=== PATIENT | female | born 1945 | race Caucasian/White ===

== ENCOUNTER → 2016-10-04 | Outpatient (CLI) | payer MEDICARE, BC ==
[2016-10-04 12:43] LABS: ABSOLUTE EOSINOPHILS # (AUTO) 0.1 10^3/uL (0.0-0.6); ABSOLUTE LYMPHOCYTES (AUTO) 1.4 10^3/uL (0.5-4.7); ABSOLUTE MONOCYTES (AUTO) 0.5 10^3/uL (0.1-1.4); ABSOLUTE NEUT (AUTO) 4.5 10^3/uL (1.7-8.2); BASOPHILS % (AUTO) 0.7 % (0-2); EOSINOPHILS % (AUTO) 1.7 % (0-6); HEMATOCRIT 39.6 % (36.0-47.0); HEMOGLOBIN 13.3 g/dL (12.0-15.5); HGB HCT DIFFERENCE 0.3; LYMPHOCYTES % (AUTO) 21.6 % (13-45); MEAN CORPUSCULAR HGB CONC 33.4 g/dL (32.0-36.0); MEAN CORPUSCULAR VOLUME 81 fl (80-97); RED CELL DISTRIBUTION WIDTH 15.3 % (11.5-14.0); WHITE BLOOD COUNT 6.7 10^3/uL (4.0-10.5)
[2016-10-04 13:20] LABS: ANION GAP 11 (5-19)
[2016-10-04 13:58] LABS: THYROID STIMULATING HORMONE 0.07 uIU/mL (0.47-4.68)
[2016-10-04 14:18] LABS: ALANINE AMINOTRANSFERASE 23 U/L (9-52); ALBUMIN 4.2 g/dL (3.5-5.0); ALKALINE PHOSPHATASE 60 U/L (38-126); ASPARTATE AMINO TRANSFERASE 21 U/L (14-36); BILIRUBIN,DIRECT 0.4 mg/dL (0.0-0.4); BILIRUBIN,TOTAL 0.7 mg/dL (0.2-1.3); BLOOD UREA NITROGEN 14 mg/dL (7-20); CALCIUM 9.4 mg/dL (8.4-10.2); CARBON DIOXIDE 27 mmol/L (22-30); CHLORIDE 105 mmol/L (98-107); CHOLESTEROL 157.68 mg/dL (0-200); CREATININE RESULT 0.72 mg/dL (0.52-1.25); DIRECT LDL 95 mg/dL (<100); Direct HDL 50 mg/dL (>40); GLUCOSE 86 mg/dL (75-110); POTASSIUM 4.6 mmol/L (3.6-5.0); SODIUM 143.1 mmol/L (137-145); TOTAL PROTEIN 7.8 g/dL (6.3-8.2); TRIGLYCERIDES 98 mg/dL (<150)
== END ==
LOC: OD 11:24
PROVIDERS: ATTEND Internal Medicine
DX: E03.9 Hypothyroidism, unspecified (principal); I10 Essential (primary) hypertension; M10.071 Idiopathic gout, right ankle and foot; D51.9 Vitamin B12 deficiency anemia, unspecified; G31.84 Mild cognitive impairment of uncertain or unknown etiology; Z79.899 Other long term (current) drug therapy
CPT/HCPCS: 36415; 80053; 80061; 82306; 82607; 84439; 84443; 85025

== ENCOUNTER 2017-10-07 09:07 | Emergency (ER) | payer MEDICARE, BC ==
--- NOTE | 2017-10-07 09:49 | ER Document Report ---
ED Medical Screen (RME) - General Chief Complaint: Pelvic Pain Stated Complaint: PELVIC PAIN Time Seen by Provider: 10/07/17 09:24 Mode of Arrival: Wheelchair Information source: Patient Notes: 71-year-old female presented ED for complaint of pain since September 01, 2017 when she fell. She states she went to urgent care and they did x-ray and stated that there was no fracture. She stated they put her on tramadol which has not really done anything. She states that the pain has never stopped hurting since September 01. She has not been back to follow-up for this pain. Patient has a history of high blood pressure, thyroid tumors with a thyroidectomy, breast cancer with a lumpectomy, colonoscopy, fractured ankle, fibromyalgia, and arthritis. She states it is very painful to walk or move due to the pain in her pelvis and tailbone and low back. She is a former smoker but has not smoked in years. I have greeted and performed a rapid initial assessment of this patient. A comprehensive ED assessment and evaluation of the patient, analysis of test results and completion of medical decision making process will be conducted by an additional ED providers. TRAVEL OUTSIDE OF THE [place] IN LAST 30 DAYS: No - Related Data Allergies/Adverse Reactions: No Known Allergies Allergy (Verified 09/14/15 08:15) Past Medical History - Past Medical History Cardiac Medical History: Reports: Hx Hypertension - controlled w meds Denies: Hx Coronary Artery Disease, Hx Heart Attack Pulmonary Medical History: Denies: Hx Asthma, Hx Bronchitis, Hx COPD, Hx Pneumonia Neurological Medical History: Denies: Hx Cerebrovascular Accident, Hx Seizures Renal/ Medical History: Denies: Hx Peritoneal Dialysis GI Medical History: Denies: Hx Hepatitis, Hx Hiatal Hernia, Hx Ulcer Musculoskeltal Medical History: Reports Hx Arthritis - Knees, fingers Infectious Medical History: Denies: Hx Hepatitis Past Surgical History: Reports: Hx Hysterectomy. Denies: Hx Mastectomy, Hx Open Heart Surgery, Hx Pacemaker - Immunizations Hx Diphtheria, Pertussis, Tetanus Vaccination: Yes Physical Exam - Vital signs Vitals: Temp Pulse Resp BP Pulse Ox 97.6 F 59 L 17 134/66 H 95 10/07/17 09:13 10/07/17 09:13 10/07/17 09:13 10/07/17 09:13 10/07/17 09:13 Course - Vital Signs Vital signs: Temp Pulse Resp BP Pulse Ox 97.6 F 59 L 17 134/66 H 95 10/07/17 09:13 10/07/17 09:13 10/07/17 09:13 10/07/17 09:13 10/07/17 09:13
[2017-10-07] MEDS ORDERED: HYDROCODONE/ACETAMINOPHEN 5-325 MG TABLET PO ONE (10:11)
--- NOTE | 2017-10-07 10:12 | ER Document Report ---
HPI - HPI Patient complains to provider of: Sacral pain Onset: Other - Month Onset/Duration: Persistent Quality of pain: Achy Pain Level: 5 Context: Patient states that she was taking the trash out in a stray dog came running towards her. Patient states she slipped and fell landing on a wooden step. Patient complains of continued sacral and right posterior hip pain. Patient is able to ambulate. Patient was seen at an urgent care when this first happened and had x-rays that did not show any acute findings. Patient states she has been taking tramadol without any relief of her pain symptoms. Associated Symptoms: Other - Sacral pain, right posterior hip pain Exacerbated by: Sitting, Standing, Movement, Walking Relieved by: Denies Similar symptoms previously: No Recently seen / treated by doctor: Yes - ROS ROS below otherwise negative: Yes Systems Reviewed and Negative: Yes All other systems reviewed and negative - CONSTITUTIONAL Constitutional: DENIES: Fever - NEURO Neurology: DENIES: Headache, Weakness - MUSCULOSKELETAL Musculoskeletal: REPORTS: Extremity pain. DENIES: Back Pain - DERM Skin Color: Normal Skin Problems: None Past Medical History - General Information source: Patient - Social History Smoking Status: Never Smoker Frequency of alcohol use: None Drug Abuse: None Occupation: None Lives with: Family Family History: Reviewed & Not Pertinent Patient has suicidal ideation: No Patient has homicidal ideation: No - Past Medical History Cardiac Medical History: Reports: Hx Hypertension - controlled w meds Denies: Hx Coronary Artery Disease, Hx Heart Attack Pulmonary Medical History: Denies: Hx Asthma, Hx Bronchitis, Hx COPD, Hx Pneumonia Neurological Medical History: Denies: Hx Cerebrovascular Accident, Hx Seizures Renal/ Medical History: Denies: Hx Peritoneal Dialysis Malignancy Medical History: Reports: Hx Breast Cancer GI Medical History: Denies: Hx Hepatitis, Hx Hiatal Hernia, Hx Ulcer Musculoskeltal Medical History: Reports Hx Arthritis - Knees, fingers Infectious Medical History: Denies: Hx Hepatitis Past Surgical History: Reports: Hx Hysterectomy, Hx Thyroid Surgery. Denies: Hx Mastectomy, Hx Open Heart Surgery, Hx Pacemaker - Immunizations Hx Diphtheria, Pertussis, Tetanus Vaccination: Yes Vertical Provider Document - CONSTITUTIONAL Agree With Documented VS: Yes Exam Limitations: No Limitations General Appearance: WD/WN, No Apparent Distress - INFECTION CONTROL TRAVEL OUTSIDE OF THE [place] IN LAST 30 DAYS: No - HEENT HEENT: Atraumatic, Normocephalic - NECK Neck: Normal Inspection - RESPIRATORY Respiratory: Breath Sounds Normal, No Respiratory Distress - CARDIOVASCULAR Cardiovascular: Regular Rate, Regular Rhythm Pulses: Normal: Dorsalis pedis - BACK Back: Abnormal Inspection - Right SI joint tenderness, sacral tenderness. negative: CVA Tenderness-Right, CVA Tenderness-Left - MUSCULOSKELETAL/EXTREMETIES Musculoskeletal/Extremeties: MAEW, Tender - Right hip joint tenderness to posterior aspect and right inguinal area, normal gait, no deformity - NEURO Level of Consciousness: Awake, Alert Motor/Sensory: No Motor Deficit, No Sensory Deficit Notes: No saddle anesthesia, no footdrop - DERM Integumentary: Warm, Dry Course - Re-evaluation Re-evalutation: 10/07/17 11:[address] Dwyer regarding patient presentation, recommends consultation with orthopedics. Consulted with Dr. Gordon who advises outpatient follow-up in the office on Sunday for further evaluation. - Vital Signs Vital signs: Temp Pulse Resp BP Pulse Ox 97.6 F 59 L 17 134/66 H 95 10/07/17 09:13 10/07/17 09:13 10/07/17 09:13 10/07/17 09:13 10/07/17 09:13 - Diagnostic Test Radiology reviewed: Image reviewed, Reports reviewed Discharge - Discharge Clinical Impression: Sacral fracture, closed Qualifiers: Encounter type: initial encounter Zone of sacrum fracture: unspecified portion of sacrum Qualified Code(s): S32.10XA - Unspecified fracture of sacrum, initial encounter for closed fracture Fracture of lumbar spine Qualifiers: Encounter type: initial encounter Lumbar vertebra fracture level: unspecified lumbar vertebra Fracture type: closed Fracture morphology: unspecified fracture morphology Qualified Code(s): S32.009A - Unspecified fracture of unspecified lumbar vertebra, initial encounter for closed fracture Condition: Stable Disposition: HOME, SELF-CARE Instructions: Oral Narcotic Medication ([facility]) Additional Instructions: Return immediately for any new or worsening symptoms Followup with your primary care provider, call tomorrow to make a followup appointment Take your tramadol or the hydrocodone, do not take both of these medications together at the same time. Follow-up with orthopedics on Sunday for further evaluation, call Sunday for an appointment time. Prescriptions: Hydrocodone/Acetaminophen [Dexter 5-325 Tablet] 1 each PO Q8 PRN #12 tablet PRN Reason: Lidocaine [Lidoderm 5% (700 mg) Transdermal Patch] 1 patch TP DAILY PRN #7 adh..patch PRN Reason: Referrals: CORETTA SCANLON MD [Primary Care Provider] - Follow up as needed JESSICA GORDON MD [ACTIVE STAFF] - 10/09/17
--- NOTE | 2017-10-07 11:02 | RADIOLOGY REPORT (SQ) ---
EXAM DESCRIPTION: CT ABD/PELVIS NO ORAL OR IV COMPLETED DATE/TIME: 10/07/2017 10:46 am REASON FOR STUDY: Pelvic lumbar sacral pain since fall may COMPARISON: None. TECHNIQUE: CT scan of the abdomen and pelvis performed without intravenous or oral contrast. Images reviewed with lung, soft tissue, and bone windows. Reconstructed coronal and sagittal MPR images revi ewed. All images stored on PACS. All CT scanners at this facility use dose modulation, iterative reconstruction, and/or weight based d osing when appropriate to reduce radiation dose to as low as reasonably achievable (ALARA). [facility]: Dose Right [facility]: CareDose [facility]: Dose Right [facility]: Teradose 4D [facility]: Bitstamp RADIATION DOSE: CT Rad equipment meets quality standard of care and radiation dose reduction techniq ues were employed. CTDIvol: 9.8 mGy. DLP: 532 mGy-cm.mGy. LIMITATIONS: None. FINDINGS: LOWER CHEST: No significant findings. No nodules or infiltrates. NON-CONTRASTED LIVER, SPLEEN, ADRENALS: Evaluation limited by lack of IV contrast. No identified sign ificant masses. PANCREAS: No masses. No peripancreatic inflammatory changes. GALLBLADDER: Surgically absent. RIGHT KIDNEY AND URETER: No suspicious masses. Assessment limited by lack of IV contrast. No signif icant calcifications. No hydronephrosis or hydroureter. LEFT KIDNEY AND URETER: No suspicious masses. Assessment limited by lack of IV contrast. No signifi cant calcifications. No hydronephrosis or hydroureter. AORTA AND RETROPERITONEUM: No aneurysm. No retroperitoneal masses or adenopathy. BOWEL AND PERITONEAL CAVITY: No obvious masses or inflammatory changes. No free fluid. APPENDIX: Not visualized. PELVIS, BLADDER, AND ABDOMINAL WALL:No abnormal masses. Small midline abdominal hernia containing fa t, located 2 cm superior to the umbilicus. No free fluid. Bladder normal. BONES: Degenerative changes in the spine. Subacute fractures of the left transverse processes of L4 and L5. Heterogenous sclerotic appearance of the sacrum with faint vertical fracture lines. OTHER: No other significant finding. IMPRESSION: 1. SUBACUTE FRACTURES OF THE RIGHT AND LEFT SIDE OF THE SACRUM AND OF THE LEFT TRANSVERSE PROCESSES O F L4 AND L 5. 2. SMALL MIDLINE ABDOMINAL WALL HERNIA CONTAINING FAT. NO INVOLVEMENT OF BOWEL. 3. NO OTHER SIGNIFICANT FINDINGS. COMMENT: Quality ID # [id number]: Final reports with documentation of one or more dose reduction techniques (e.g., Automated exposure control, adjustment of the mA and/or kV according to patient size, use of iterative reconstruction technique) TECHNICAL DOCUMENTATION: JOB ID: [id number] [email or web address]- All Rights Reserved Reading location - IP/workstation name: [email or web address]
[2017-10-07] MEDS ORDERED: LIDOCAINE 5% (700 MG) TRANSDERMAL ADH..PATCH TP ONE (11:21)
[2017-10-07 11:53] VITALS: BP 136/49
== END 2017-10-07 11:40 | disposition home or self-care (01) ==
LOC: ER 09:07
DX: S32.10XA Unspecified fracture of sacrum, initial encounter for closed fracture (principal); S32.009A Unspecified fracture of unspecified lumbar vertebra, initial encounter for closed fracture; M53.3 Sacrococcygeal disorders, not elsewhere classified; M25.551 Pain in right hip; W01.0XXA Fall on same level from slipping, tripping and stumbling without subsequent striking against object, initial encounter; Y93.9 Activity, unspecified; I10 Essential (primary) hypertension
CPT/HCPCS: 99284; 74176; A9270

== ENCOUNTER → 2017-10-20 | Outpatient (CLI) | payer MEDICARE, BC ==
--- NOTE | 2017-10-20 14:19 | RADIOLOGY REPORT (SQ) ---
EXAM DESCRIPTION: MRI PELVIS WITHOUT COMPLETED DATE/TIME: 10/20/2017 11:52 am REASON FOR STUDY: PELVIC FX, FALL ONE MONTH AGO R10.2 PELVIC AND PERINEAL PAIN COMPARISON: CT abdomen pelvis 10/07/2017 TECHNIQUE: MRI bony pelvis acquired and stored on PACS. Multiplanar images to include fat sensitive sequences as T1, fluid sensitive sequences as T2/STIR and gradient echo sequences. Large FOV fat and fluid sensitive sequences include pelvis and opposite hip. LIMITATIONS: None. FINDINGS: BONE CORTEX AND MARROW: There is marrow edema in the right and left sacral ala and along t he right symphysis pubis from subacute nondisplaced osteoporotic insufficiency fractures. RIGHT HIP: No marrow signal and abnormality worrisome for occult fracture right proximal femur or acetabulum. N o right hip joint effusion. No trochanteric bursal fluid. There is edema in the obturator externus muscle on the right, with a small intramuscular hematoma measuring about 4 x 1.6 cm on coronal image 11. LEFT HIP: No marrow signal abnormality worrisome for occult fracture left proximal femur or acetabulum. No sig nificant joint effusion. No trochanteric bursal fluid. PELVIS : There is marrow edema in the right and left sacral ala and along the right symphysis pubis f rom subacute nondisplaced osteoporotic insufficiency fractures. L SPINE: Edema along the left transverse process of L4 from subacute fracture. MUSCLES AND SOFT TISSUES: Right-sided obturator externus muscle hematoma on coronal image 11. Minima l edema in the left psoas and paraspinal muscles adjacent to the left L4 transverse process. PELVIC SOFT TISSUES: No masses or adenopathy. Post hysterectomy. SCIATIC NERVE: Identified, without masses or abnormal signal. OTHER: No other significant finding. IMPRESSION: Insufficiency fractures along the right and left sacral ala and right superior pubic yash us/right symphysis pubis. Edema along the left L4 transverse process related to fracture. Small right obturator externus muscle hematoma. TECHNICAL DOCUMENTATION: JOB ID: [id number]- All Rights Reserved Reading location - IP/workstation name: [email or web address]
== END ==
LOC: RAD 10:41
PROVIDERS: ATTEND Physician Assistant Medical
DX: M84.459A Pathological fracture, hip, unspecified, initial encounter for fracture (principal); R10.2 Pelvic and perineal pain
CPT/HCPCS: 72195

== ENCOUNTER → 2017-10-25 | Outpatient (CLI) | payer MEDICARE, BC ==
--- NOTE | 2017-10-25 12:14 | RADIOLOGY REPORT (SQ) ---
EXAM DESCRIPTION: MRI LUMBAR SPINE WITHOUT COMPLETED DATE/TIME: 10/25/2017 9:58 am REASON FOR STUDY: LOW BACK PAIN M54.5 LOW BACK PAIN R10.2 PELVIC AND PERINEAL PAIN COMPARISON: CT abdomen pelvis 10/07/2017 TECHNIQUE: Sagittal and Axial imaging includes T1, T2, STIR and gradient echo sequences. Coronal T2/ HASTE imaging. LIMITATIONS: None. FINDINGS: VISUALIZED UPPER ABDOMEN: Limited evaluation. No acute or suspicious findings suggested. SEGMENTATION: No transitional anatomy. The lowest well-developed disc space is labeled L5-S1. ALIGNMENT: Grade 1 anterolisthesis of L5 over S1 related to bilateral L5 spondylolysis VERTEBRAE: Intact. BONE MARROW: There is marrow edema in the right and left sacral ala from subacute bilateral insuffici ency fractures, similar compared to 10/07/2017 CT exam DISC SIGNAL: Disc space loss of height with decreased T2 weighted intervertebral disc signal at L5-S1 POSTERIOR ELEMENTS: Bilateral spondylolysis at L5 HARDWARE: None in the spine. CORD AND CONUS: Normal in size and signal intensity. Conus at the L1 level. SOFT TISSUES: No aortic aneurysm seen. No bulky retroperitoneal adenopathy or mass. No paraspinal mas s or fluid. T12-L1: No central or foraminal stenosis. Mild bilateral facet hypertrophy and ligamentum flavum th ickening L1-L2: Borderline central canal narrowing results from broad diffuse disc bulge and mild facet and li gament hypertrophy. No significant foraminal narrowing. L2-L3: Minimal posterior disc bulge and bony spurring, moderate bilateral facet and ligament hypertro phy. No central stenosis. No significant right foraminal narrowing. Mild inferior left foraminal n arrowing. L3-L4: Broad diffuse posterior disc bulge and moderate bilateral facet and ligament hypertrophy. No central stenosis. Mild bilateral inferior foraminal narrowing without exiting L3 nerve root impingem ent L4-L5: Broad diffuse posterior disc bulging right greater than left, moderate bilateral facet and lig ament hypertrophy. No central stenosis. Mild right and left foraminal narrowing without L4 nerve ro ot impingement. L5-S1: Degenerative spondylolysis with grade 1 anterolisthesis of L5 over S1. No central stenosis. Moderate bilateral foraminal narrowing without exiting L5 nerve root impingement. LOWER THORACIC: Incompletely imaged. No stenosis seen. SACRUM: There is edema in the right and left sacral ala from subacute insufficiency fractures. This is similar compared to CT 10/07/2017 OTHER: No other significant findings. IMPRESSION: Sacral insufficiency fractures. 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 TECHNICAL DOCUMENTATION: JOB ID: [id number] [employer]- All Rights Reserved Reading location - IP/workstation name: [facility]
== END ==
LOC: RAD 09:04
PROVIDERS: ATTEND Physician Assistant Medical
DX: M54.5 Low back pain (principal); R10.2 Pelvic and perineal pain; M47.897 Other spondylosis, lumbosacral region; M84.48XD Pathological fracture, other site, subsequent encounter for fracture with routine healing
CPT/HCPCS: 72148

== ENCOUNTER → 2017-12-12 | Outpatient (CLI) | payer MEDICARE, BC ==
[2017-12-12 10:11] LABS: ABSOLUTE BASOPHILS # (AUTO) 0.1 10^3/uL (0.0-0.2); ABSOLUTE EOSINOPHILS # (AUTO) 0.2 10^3/uL (0.0-0.6); ABSOLUTE LYMPHOCYTES (AUTO) 1.4 10^3/uL (0.5-4.7); ABSOLUTE MONOCYTES (AUTO) 0.5 10^3/uL (0.1-1.4); ABSOLUTE NEUT (AUTO) 3.6 10^3/uL (1.7-8.2); BASOPHILS % (AUTO) 1.1 % (0-2); EOSINOPHILS % (AUTO) 3.1 % (0-6); HEMATOCRIT 39.3 % (36.0-47.0); HEMOGLOBIN 13.6 g/dL (12.0-15.5); LYMPHOCYTES % (AUTO) 24.9 % (13-45); MEAN CORPUSCULAR HEMOGLOBIN 28.6 pg (27.0-33.4); MEAN CORPUSCULAR HGB CONC 34.5 g/dL (32.0-36.0); MEAN CORPUSCULAR VOLUME 83 fl (80-97); MONOCYTES % (AUTO) 9.3 % (3-13); PLATELET COUNT 238 10^3/uL (150-450); RED BLOOD COUNT 4.73 10^6/uL (3.72-5.28); RED CELL DISTRIBUTION WIDTH 14.1 % (11.5-14.0); SEGMENTED NEUTROPHILS % (AUTO) 61.6 % (42-78); TOTAL CELLS COUNTED % (AUTO) 100 %; WHITE BLOOD COUNT 5.8 10^3/uL (4.0-10.5)
[2017-12-12 10:48] LABS: ALANINE AMINOTRANSFERASE 17 U/L (9-52); ALBUMIN 4.5 g/dL (3.5-5.0); ALKALINE PHOSPHATASE 84 U/L (38-126); ANION GAP 13 (5-19); ASPARTATE AMINO TRANSFERASE 28 U/L (14-36); BILIRUBIN,DIRECT 0.4 mg/dL (0.0-0.4); BILIRUBIN,TOTAL 0.6 mg/dL (0.2-1.3); BLOOD UREA NITROGEN 13 mg/dL (7-20); CALCIUM 9.6 mg/dL (8.4-10.2); CARBON DIOXIDE 29 mmol/L (22-30); CHLORIDE 104 mmol/L (98-107); CHOLESTEROL 171.32 mg/dL (0-200); GLUCOSE 95 mg/dL (75-110); SODIUM 145.7 mmol/L (137-145); TOTAL PROTEIN 7.8 g/dL (6.3-8.2); TRIGLYCERIDES 150 mg/dL (<150)
[2017-12-12 11:00] LABS: DIRECT LDL 95 mg/dL (<100)
[2017-12-12 11:03] LABS: FREE T4 (FREE THYROXINE) 1.49 ng/dL (0.78-2.19)
[2017-12-12 11:18] LABS: THYROID STIMULATING HORMONE 1.53 uIU/mL (0.47-4.68)
== END ==
LOC: OD 09:18
PROVIDERS: ATTEND Internal Medicine
DX: I10 Essential (primary) hypertension (principal); E03.9 Hypothyroidism, unspecified; E78.00 Pure hypercholesterolemia, unspecified; Z79.899 Other long term (current) drug therapy
CPT/HCPCS: 36415; 80053; 80061; 84439; 84443; 85025

== ENCOUNTER → 2019-02-24 | Outpatient (CLI) | payer MEDICARE, BC ==
[2019-02-24 11:36] LABS: ABSOLUTE EOSINOPHILS # (AUTO) 0.2 10^3/uL (0.0-0.6); ABSOLUTE LYMPHOCYTES (AUTO) 1.4 10^3/uL (0.5-4.7); ABSOLUTE MONOCYTES (AUTO) 0.5 10^3/uL (0.1-1.4); ABSOLUTE NEUT (AUTO) 3.6 10^3/uL (1.7-8.2); BASOPHILS % (AUTO) 0.8 % (0-2); EOSINOPHILS % (AUTO) 3.4 % (0-6); HEMATOCRIT 39.8 % (36.0-47.0); HEMOGLOBIN 13.6 g/dL (12.0-15.5); MEAN CORPUSCULAR HEMOGLOBIN 28.2 pg (27.0-33.4); MEAN CORPUSCULAR HGB CONC 34.2 g/dL (32.0-36.0); MEAN CORPUSCULAR VOLUME 83 fl (80-97); PLATELET COUNT 195 10^3/uL (150-450); RED BLOOD COUNT 4.82 10^6/uL (3.72-5.28); RED CELL DISTRIBUTION WIDTH 13.5 % (11.5-14.0); SEGMENTED NEUTROPHILS % (AUTO) 61.8 % (42-78); TOTAL CELLS COUNTED % (AUTO) 100 %; WHITE BLOOD COUNT 5.8 10^3/uL (4.0-10.5)
[2019-02-24 11:59] LABS: ALBUMIN 4.6 g/dL (3.5-5.0); ALKALINE PHOSPHATASE 62 U/L (38-126); ANION GAP 10 (5-19); ASPARTATE AMINO TRANSFERASE 29 U/L (14-36); BILIRUBIN,DIRECT 0.2 mg/dL (0.0-0.4); BILIRUBIN,TOTAL 0.7 mg/dL (0.2-1.3); BLOOD UREA NITROGEN 13 mg/dL (7-20); CALCIUM 10.1 mg/dL (8.4-10.2); CARBON DIOXIDE 28 mmol/L (22-30); CHLORIDE 107 mmol/L (98-107); CHOLESTEROL 177.15 mg/dL (0-200); GLUCOSE 87 mg/dL (75-110); POTASSIUM 4.6 mmol/L (3.6-5.0); TRIGLYCERIDES 96 mg/dL (<150)
[2019-02-24 12:10] LABS: DIRECT LDL 115 mg/dL (<100)
[2019-02-24 12:13] LABS: FREE T4 (FREE THYROXINE) 1.74 ng/dL (0.78-2.19)
[2019-02-24 12:27] LABS: THYROID STIMULATING HORMONE 0.3 uIU/mL (0.47-4.68)
== END ==
LOC: OD 10:29
PROVIDERS: ATTEND Internal Medicine
DX: I10 Essential (primary) hypertension (principal); E78.00 Pure hypercholesterolemia, unspecified; E03.9 Hypothyroidism, unspecified; Z79.899 Other long term (current) drug therapy
CPT/HCPCS: 36415; 80053; 80061; 84439; 84443; 85025